=== PATIENT | female | born 1985 | race Caucasian/White ===

== ENCOUNTER 2020-07-20 11:20 | Day surgery (SDC) | payer SELFPAY ==
[2020-07-20 11:49] VITALS: BMI 30.7
[2020-07-20 11:56] VITALS: BP 122/73; TEMP 98.3
[2020-07-20] MEDS ORDERED: hydrALAZINE 20 MG/ML VIAL SLOW IVP PRN (12:25)
--- NOTE | 2020-07-20 13:02 | HP ---
PRIMARY OB: Out of town in [place], [place]. CHIEF COMPLAINT: Side pain. HISTORY OF PRESENT ILLNESS: The patient is a 34-year-old female, G4, P2, with an intrauterine at 33 weeks and a day, who was transferred from [facility] ER for concerns of abdominal pain. When she arrived, the patient reported that her pain is primarily located in her right side up in the lower parts of her ribcage. She reports at the time of my evaluation that the pain had spontaneously resolved and that she has no more pain with breathing or movement or activity. She denies any contractions. She denies fever, fall, headache, chest pain, shortness of breath, nausea, vomiting, diarrhea, constipation, hip problems, knee problems, or muscle weakness. She denies vaginal bleeding, leakage of fluid, or urinary urgency or frequency. She denies any new rashes. PAST MEDICAL HISTORY: Migraines, depression, and anemia. PAST SURGICAL HISTORY: She has had 2 prior C-sections. She has had breast augmentation and oral surgery for wisdom teeth. OB HISTORY: She has a history of 30 weeks demise. ALLERGIES: NO KNOWN DRUG ALLERGIES. MEDICATIONS: 1. Prozac. 2. Iron. 3. vitamins. OB LABS: Unavailable at time of dictation. REVIEW OF SYSTEMS: Per HPI. PHYSICAL EXAMINATION: VITAL SIGNS: Blood pressure 122/73, heart rate of 62, saturating 99% on room air, and temperature 98.3. GENERAL: She appears to be in no acute distress. She is alert, oriented, cooperative, and pleasant to interact with. HEAD: Normocephalic and atraumatic. LUNGS: Clear to auscultation bilaterally. HEART: She has a regular rate and rhythm. ABDOMEN: Gravid, soft, and nontender. She has no tenderness to palpation among her intercostal muscles and the region, where she is having pain before she has no pain with lifting her arms or deep breathing. EXTREMITIES: Nontender and nonedematous. : Exam has been deferred at this time. heart tracing shows the fetus with a baseline in the 120s with moderate long-term variability, positive 15 x 15 accelerations. No decelerations. Tocometer shows some irritability, but not felt by the patient. ASSESSMENT AND PLAN: The patient is a 34-year-old female, with an intrauterine at 33 weeks and a day, who presented as a transfer from an outside ER for concerns of abdominal pain. On further evaluation, this pain is actually more intercostal pain that by history sounds to be a muscle spasm that has now spontaneously resolved. The patient has no other obstetric concerns or complications with this . She has a baby at a category 1 tracing and reactive NST. She is being discharged home with instructions to follow up with her primary OB as scheduled. Job ID: [id number]
[2020-07-21] MEDS ORDERED: FLU VACC QS2020-21(6MOS UP)/PF 60 MCG/0.5 ML SYRINGE IM ONE (12:00)
== END 2020-07-20 12:40 | disposition home or self-care (01) ==
LOC: L&D/OP 11:20
PROVIDERS: ATTEND Obstetrics & Gynecology
DX: O99.891 Other specified diseases and conditions complicating pregnancy (principal); R10.31 Right lower quadrant pain; O99.343 Other mental disorders complicating pregnancy, third trimester; F32.9 Major depressive disorder, single episode, unspecified; O99.013 Anemia complicating pregnancy, third trimester; D64.9 Anemia, unspecified; Z3A.33 33 weeks gestation of pregnancy
CPT/HCPCS: 59025; 99283